=== PATIENT | female | born 1970 | race Caucasian/White ===

== ENCOUNTER 2018-07-11 15:01 | Emergency (ER) | payer OTHER ==
[~2018-07-11] VITALS: Ht 172.7 cm; Wt 99.8 kg
[~2018-07-11 15:01] MED LIST: CARTIA XT120 M1 PO; XOPENEX HFA15 GM INH
[2018-07-11] MEDS ORDERED: ALPRAZOLAM0.5 M4 PO (15:34)
[2018-07-11 15:50] LABS: ABSOLUTE BASOPHIL COUNT 0.1 /CUMM (0.0-0.2); ABSOLUTE EOSINOPHIL COUNT 0.1 /CUMM (0.0-0.7); ABSOLUTE GRANULOCYTE CT 10.9 /CUMM (1.4-6.5); ABSOLUTE LYMPH COUNT 3.8 /CUMM (1.2-3.4); ABSOLUTE MONOCYTE COUNT 0.7 /CUMM (0.10-0.60); BASOPHIL % 0.4 % (0.0-2.0); EOSINOPHIL % 0.9 % (0-5); GRANULOCYTE % 69.9 % (42.2-75.2); HEMATOCRIT 39.6 % (37-47); MEAN CORPUSCULAR VOLUME 78.9 FL (81.0-99.0); PLATELET COUNT 353 /CUMM (130-400); RBC DISTRIBUTION WIDTH 13.7 % (11.5-14.5); RED BLOOD CELL CT 5.02 /CUMM (4.20-5.40); WHITE BLOOD CELL COUNT 15.6 /CUMM (4.8-10.8)
--- NOTE | 2018-07-11 16:10 | RADIOLOGY REPORT ---
EXAMINATION: XR CHEST CLINICAL INFORMATION: Chest pain. COMPARISON: Chest x-ray 07/17/2017 TECHNIQUE: 2 views of the chest were obtained. FINDINGS: Lungs are clear. No pulmonary vascular congestion. There is no pleural effusion. The heart size is normal. The cardiac and mediastinal contours are normal. . There are multilevel degenerative changes of dorsal spine. There are surgical clips in the upper abdomen. IMPRESSION: Unremarkable examination.
--- NOTE | 2018-07-11 17:24 | ED CARDIAC/CP/PALPITATIONS ---
History of Present Illness General Chief Complaint: Chest Pain Stated Complaint: CHEST PAIN, HANDS NUMB Source: patient, old records Exam Limitations: no limitations Vital Signs & Intake/Output Vital Signs & Intake/Output Vital Signs Date Time Temp Pulse Resp B/P B/P Pulse O2 O2 Flow FiO2 Mean Ox Delivery Rate 07/11 2022 Room Air 07/11 2021 97.1 80 18 110/57 95 Room Air 07/11 1650 98.9 82 16 141/83 99 Room Air 07/11 1511 97.4 86 18 124/78 98 Room Air Allergies Coded Allergies: Gadolinium-Containing Contrast Medi (Severe, ANAPHYLAXIS 07/17/17) morphine (Mild, ITCHING 07/17/17) Penicillins (UNKNOWN 07/11/18) Sulfa (Sulfonamide Antibiotics) (UNKNOWN 07/17/17) vancomycin (RED MAN SYNDROME 07/11/18) Reconcile Medications Alprazolam 0.5 MG TABLET 1 TAB PO BIDP PRN ANXIETY (Reported) Diltiazem HCl (Cartia Xt) 120 MG CAP.ER.24H 1 CAP PO DAILY HEART (Reported) Triage Note: 48 YO FEMALE TO TRIAGE FOR EVAL OF PALPITATIONS AND NUMBESS IN BILATERAL HANDS. STATES SHE WAS SITITNG AT HER DESK AT WORK WHEN SHE FELT THE PALPITAIONS. DENIES SOB. C/O HEADACHE. EKG COMPLETED, Triage Nurses Notes Reviewed? yes Onset: Abrupt Duration: hour(s): (2) Timing: single episode today Quality/Severity: mild Location: central Radiation: no radiation Activities at Onset: none Prior Chest Pain/Card Workup: cardiac cath, echocardiography (ef 55%) Modifying Factors: Improves With: antacids. Aspirin Today: 325 mg x 1, provided by ED Associated Symptoms: headache, shortness of breath, nausea/vomiting (nausea) HPI: Mrs Moon is a 48 female with a past medical history of coronary artery vasospasm on diltiazem, cath [place] [address] fernandez, asthma, migraine, breast cancer s/p bilateral mastectomy and reconstruction who presents today with a 2- hour history of acute onset chest pain with palpitations, shortness of breath, and bilateral finger tingling. Patient states that she was sitting at her desk at work when all of a sudden her heart started beating really fast, followed by some nausea, burping which was relieved by Rolaids, epigastric discomfort, and indigestion. States that she has not been under any increased stress, and the pain happened at rest. Was not worse with movements, but was acutely short of breath. States that she has had these episodes in the past, but chest pain made her call her power generating plant operator, Dr. Ga, who recommended she go to the ED. she states that she takes her Cardizem as prescribed, for coronary vasospasm. She states that she last had an echo sometime last year, which was normal. States that she has not seen Dr. Fernandez in at least a year. States that she does not smoke, nor drink, denies drug use. States that she takes CBD oil for anxiety. ROS reveals recent increased urinary frequency after acute onset of palpitations. (Bernadette GORMAN,) Past History Travel History Traveled to [place] past 21 day No Medical History Any Pertinent Medical History? see below for history Cardiovascular: VARIANT ANGINA Respiratory: asthma Cancer(s): left breast cancer Other Medical Hx: peripheral neuropathy, Lyme disease, Raynaud's disease, migraine, obesity History of MRSA: No History of VRE: No History of CDIFF: No Surgical History Surgical History: non-contributory Psychosocial History Who do you live with Family Services at Home None What is your primary language Tajik Tobacco Use: Never used Family History Hx Contributory? No (Christopher Fleming MD) Review of Systems Review of Systems Constitutional: Reports: see HPI. Denies: chills, fever. Respiratory: Reports: short of breath. Denies: cough, hemoptysis, wheezing. Cardiovascular: Reports: chest pain, palpitations. Denies: peripheral edema, syncope. GI: Reports: bloating, nausea. Genitourinary: Reports: frequency. (Christopher Fleming MD) Physical Exam Physical Exam General Appearance: well developed/nourished, no apparent distress, alert, awake , comfortable Head: atraumatic Respiratory: normal breath sounds, lungs clear Cardiovascular: regular rate/rhythm, normal peripheral pulses Peripheral Pulses: 2+ radial (R), 2+ radial (L) Gastrointestinal: soft, non-tender Back: normal inspection Extremities: normal inspection, no edema Neurologic/Psych: awake, alert, oriented x 3 Skin: intact, normal color, warm/dry Core Measures ACS in differential dx? Yes CVA/TIA Diagnosis No Sepsis Present: No Sepsis Focused Exam Completed? No (Christopher Fleming MD) Progress Differential Diagnosis: AMI, atrial fibrillation, musculoskeletal pain, myocarditis, PVCs/PACs, unstable angina Plan of Care: Orders Procedure Date/time Status EKG 07/11 1941 Active TROPONIN LEVEL 07/11 1900 Complete URINALYSIS 07/11 1746 Complete TROPONIN LEVEL 07/11 1504 Complete MAGNESIUM 07/11 1504 Complete COMPREHENSIVE METABOLIC PANEL 07/11 1504 Complete CBC WITHOUT DIFFERENTIAL 07/11 1504 Complete EKG 07/11 1502 Active Laboratory Tests 07/11/182009: Urine Color YEL, Urine Clarity CLEAR, Urine pH 7.0, Ur Specific [place] <= 1.005 , Urine Protein NEG, Urine Ketones NEG, Urine Nitrite NEG, Urine Bilirubin NEG, Urine Urobilinogen 0.2, Ur Leukocyte Esterase NEG, Ur Microscopic EXAM NOT REQUIRED, Urine Hemoglobin NEG, Urine Glucose NEG 07/11/181918: Troponin I < 0.01 07/11/18 1515: Anion Gap 11, Estimated GFR > 60, BUN/Creatinine Ratio 26.0 H, Glucose 93, Calcium 9.4, Magnesium 2.0, Total Bilirubin 0.3, AST 25, ALT 28, Alkaline Phosphatase 121, Troponin I < 0.01, Total Protein 7.6, Albumin 4.4, Globulin 3.2 , Albumin/Globulin Ratio 1.4, CBC w Diff NO MAN DIFF REQ, RBC 5.02, MCV 78.9 L, MCH 26.0 L, MCHC 33.0, RDW 13.7, MPV 8.0, Gran % 69.9, Lymphocytes % 24.4, Monocytes % 4.4, Eosinophils % 0.9, Basophils % 0.4, Absolute Granulocytes 10.9 H, Absolute Lymphocytes 3.8 H, Absolute Monocytes 0.7 H, Absolute Eosinophils 0.1, Absolute Basophils 0.1 Medicated with 325 aspirin. Complained of headache, was given tylenol. Will pursue 7pm trops. Paged Dr Fernandez, her power generating plant operator. No response, calling power generating plant operator communications systems engineer, Dr Martínez to place cardio consult. Will hand off to attending, Dr Hampton at this time. Initial ED EKG: normal sinus rhythm Hand-Off Endorsed To: Heraclio Hampton MD Endorsed Time: 1741 Pending: labs (Christopher Fleming MD) Comments: I personally evaluated the patient. At this time, patient is symptom-free. Patient has recent cardiac catheterization that was negative for occlusive plaque. Doubt unstable plaque as an etiology of her symptoms. The resident contacted the on-call power generating plant operator who recommended repeating cardiac enzymes and if negative, patient can be discharged safely. We would certainly recommend follow-up with her usual power generating plant operator where unable to contact this evening. Patient will be awaiting repeat troponin. This will be drawn at 7:00 this evening. (Memo GORMAN, Heraclio) CXR Impression: PATIENT: LIZETH MOON PRESENT AGE: 48 PATIENT ACCOUNT NO: [id number] : 70 LOCATION: [facility] ORDERING PHYSICIAN: Raimundo FREEMAN SERVICE DATE: 07/11/18 EXAM TYPE: RAD - XRY-CHEST XRAY, TWO VIEWS EXAMINATION: XR CHEST CLINICAL INFORMATION: Chest pain. COMPARISON: Chest x-ray 07/17/2017 TECHNIQUE: 2 views of the chest were obtained. FINDINGS: Lungs are clear. No pulmonary vascular congestion. There is no pleural effusion. The heart size is normal. The cardiac and mediastinal contours are normal. . There are multilevel degenerative changes of dorsal spine. There are surgical clips in the upper abdomen. IMPRESSION: Unremarkable examination. DICTATED BY: Fernando Carver MD DATE/TIME DICTATED:07/11/181604 SWITCH CLEANER:NAEL DATE/TIME TRANSCRIBED:07/11/181604 CONFIDENTIAL, DO NOT COPY WITHOUT APPROPRIATE AUTHORIZATION. <Electronically signed in Other Vendor System> SIGNED BY: Fernando Carver MD 07/11/18 4850 Comments: 07/11/2018 9:04:08 PM patient signed out to me by Dr. Hampton at shift micro[employer] exchange architect. Repeat troponin is unremarkable. Feel patient is stable for discharge as per signout. 07/11/2018 9:15:03 PM patient's case discussed with Dr. Fernandez. (Jenae GORMAN,Catracho Elizondo) Departure Departure Condition: Stable Referrals: Brooke Castro MD (PCP/Family) Departure Forms: Customer Survey General Discharge Information (Bernadette GORMAN,) Resident Co-Sign Statement Statement: ED Attending supervision documentation- [x] I saw and evaluated the patient. I have also reviewed all the pertinent lab results and diagnostic results. I agree with the findings and the plan of care as documented in the Resident's documentation. [] I have reviewed the ED Record and agree with the Resident's documentation. [] Additions or exceptions (if any) to the Resident's note and plan are summarized below: [] (Memo GORMAN, Heraclio) Departure Disposition: HOME OR SELF CARE Clinical Impression Primary Impression: Chest pain Qualifiers: Chest pain type: unspecified Qualified Code: R07.9 - Chest pain, unspecified Additional Instructions: Please follow up with Dr. Fernandez as soon as possible for reevaluation of your chest pain. Return if any concerns or sudden worsening. Please note that there might be incidental findings in your evaluation that are unrelated to the current emergency department visit. Please notify your primary care doctor about this emergency department visit in order to obtain and review all of the testing performed so that these incidental findings can be monitored as needed. If you had an x-ray performed, please understand that some fractures or other findings may not be seen on the initial set of x-rays. If your symptoms persist you might need a repeat set of x-rays to check for such a fracture. If you had a laceration evaluated, please understand that foreign bodies such as glass or wood may not be visible to the naked eye or on plain x-rays. If the wound becomes red, swollen, increasingly more painful or if there is any drainage from the wound, please have it reevaluated by a physician for the possibility of a retained foreign body. If you're unable to follow up as outlined in the discharge instructions please return to the emergency department. Thank you for choosing the [facility] Emergency Department for your care. It was a pleasure to serve you today. Catracho Emanuel M.D. [facility] (Jenae GORMAN,Catracho Elizondo) Critical Care Note Critical Care Note Critical Care Time: non-applicable (Bernadette GORMAN,)
[2018-07-11 20:21] VITALS: BP 110/57
== END 2018-07-11 21:21 ==
LOC: ERH 15:01
PROVIDERS: Physician Assistant Medical
DX: R07.9 Chest pain, unspecified (principal); R00.2 Palpitations; R06.02 Shortness of breath; R20.2 Paresthesia of skin
CPT/HCPCS: 71046; 81003; 93005; 93010